=== PATIENT | female | born 1950 | race Caucasian/White ===

== ENCOUNTER 2019-02-07 15:24 | Emergency (ER) | payer MEDICARE, OTHER ==
[~2019-02-07] VITALS: Ht 152.4 cm; Wt 68.0 kg
[2019-02-07] MEDS ORDERED: CHOL50004 PO (17:00)
[2019-02-07] MEDS ORDERED: OMEP20TA5 PO (17:00)
[2019-02-07] MEDS ORDERED: METO-356 PO (17:00)
[2019-02-07] MEDS ORDERED: LEVO75TA7 PO (17:00)
[2019-02-07] MEDS ORDERED: SIMV40TA5 PO (17:00)
[2019-02-07] MEDS ORDERED: MELO-107 PO (17:00)
--- NOTE | 2019-02-07 17:13 | NUR ---
pT OUT OF ER FOR CT.
[2019-02-07] MEDS ORDERED: HYDROCODONE/APAP 5-325MG TABLET ONE (18:27)
[2019-02-07] MEDS ORDERED: HYDROCODONE/APAP 5-325MG TABLET PO ONE (18:30)
[2019-02-07 19:03] VITALS: BP 128/68
== END 2019-02-07 19:04 | disposition home or self-care (01) ==
LOC: ER 15:26
DX: S42.145A Nondisplaced fracture of glenoid cavity of scapula, left shoulder, initial encounter for closed fracture (principal); K21.9 Gastro-esophageal reflux disease without esophagitis; E03.9 Hypothyroidism, unspecified; E78.5 Hyperlipidemia, unspecified; Z79.899 Other long term (current) drug therapy; W01.0XXA Fall on same level from slipping, tripping and stumbling without subsequent striking against object, initial encounter; Y93.89 Activity, other specified; Y92.89 Other specified places as the place of occurrence of the external cause; Y99.8 Other external cause status
CPT/HCPCS: 73030; 73200; A4663

== ENCOUNTER 2025-04-07 11:12 | Inpatient (IN) | payer MEDICARE, OTHER ==
[~2025-04-07] VITALS: Ht 160 cm; Wt 65.8 kg
[~2025-04-07 11:12] MED LIST: CHOL50004 PO; LEVO75TA7 PO; MELO-107 PO; METO-356 PO; OMEP20TA5 PO; SIMV-49 PO
[2025-04-09 08:04] VITALS: BP 135/79; TEMP 98.2
[2025-04-09 08:29] VITALS: BP 135/79; TEMP 98.2
[2025-04-09] MEDS ORDERED: LEVO100T10 PO (18:05)
[2025-04-09] MEDS ORDERED: AMLO-212 PO (18:05)
[2025-04-09] MEDS ORDERED: HYDR-3980 PO (18:05)
[2025-04-09] MEDS ORDERED: ICOS1CAP PO (18:05)
[2025-04-09] MEDS ORDERED: ASPI81TA31 PO (18:05)
[2025-04-09] MEDS ORDERED: ROSU20TA2 PO (18:05)
[2025-04-09] MEDS ORDERED: ENOX40DI SQ (18:05)
[2025-04-09] MEDS ORDERED: ACET-73 PO (18:05)
[2025-04-09] MEDS ORDERED: MAGN400O6 PO (18:05)
[2025-04-09] MEDS ORDERED: POLY17PO4 PO (18:05)
[2025-04-09] MEDS ORDERED: HYDR-4209 PO (18:05)
[2025-04-09] MEDS ORDERED: CYAN10006 IM (18:08)
[2025-04-09] MEDS ORDERED: MAGNESIUM HYDROXIDE 30 ML LIQUID UDC PO PRN (19:15)
[2025-04-09 20:47] VITALS: BP 110/61; TEMP 98.6; O2SAT 92
[2025-04-10 06:23] VITALS: BP 146/85; TEMP 98.5; O2SAT 96
[2025-04-10] MEDS: LEVOTHYROXINE SODIUM 100 MCG TABLET PO SCH (06:36)
[2025-04-10] MEDS: PANTOPRAZOLE SODIUM 40 MG TABLET.DR PO SCH (06:36)
[2025-04-10 07:51] VITALS: BP 150/80; TEMP 97.6; O2SAT 96
[2025-04-10] MEDS: AMLODIPINE 5 MG TABLET PO SCH (08:48)
[2025-04-10] MEDS: ASPIRIN 81 MG TAB.CHEW PO SCH (08:48)
[2025-04-10] MEDS: ATORVASTATIN 40 MG TABLET PO SCH (08:48)
[2025-04-10] MEDS: METOPROLOL SUCCINATE XL 25 MG TAB.SR.24H PO SCH (08:48)
[2025-04-10] MEDS: MELOXICAM 7.5 MG TABLET PO SCH (08:48)
[2025-04-10] MEDS: MIRALAX 17 GM POWD.PACK PO SCH (08:48)
[2025-04-10] MEDS: HYDROCODONE/APAP 5-325MG TABLET PO PRN (08:49)
[2025-04-10] MEDS: ENOXAPARIN SODIUM 40 MG/0.4 ML DISP.SYRIN SQ SCH (08:51)
[2025-04-10] MEDS ORDERED: CYANOCOBALAMIN 1000 MCG/ML VIAL IM SCH ×2 (09:00→14:00)
[2025-04-10] MEDS: CYANOCOBALAMIN 1000 MCG/ML VIAL IM ONE (15:59)
[2025-04-10 16:19] VITALS: BP 105/63; TEMP 97.6; O2SAT 97
[2025-04-10 20:03] VITALS: BP 107/61; TEMP 97.9; O2SAT 96
[2025-04-11 05:13] VITALS: BP 125/72; TEMP 98.1; O2SAT 95
[2025-04-11 08:00] VITALS: BP 134/69; TEMP 97.7; O2SAT 95
[2025-04-11] MEDS: ICOSAPENT ETHYL 1 GM PO SCH (12:06)
[2025-04-11] MEDS: CHOLECALCIFEROL 5000 UNIT PO SCH (12:07)
[2025-04-11] MEDS: METRONIDAZOLE 500 MG TABLET PO SCH (13:52)
[2025-04-11 17:00] VITALS: BP 118/68; TEMP 98; O2SAT 95
[2025-04-11 21:18] VITALS: BP 117/63; TEMP 98.6; O2SAT 94
[2025-04-12 07:03] VITALS: BP 150/76; TEMP 98.2; O2SAT 94
[2025-04-12 08:00] VITALS: BP 142/86; TEMP 98.2; O2SAT 97
[2025-04-12 16:39] VITALS: BP 108/65; TEMP 98.5; O2SAT 99
[2025-04-12] MEDS: ACETAMINOPHEN 500 MG TABLET PO PRN (20:47)
[2025-04-12 22:29] VITALS: BP 119/70; TEMP 98; O2SAT 96
[2025-04-13 06:47] VITALS: BP 131/71; TEMP 98.7; O2SAT 95
[2025-04-13] MEDS: HYDROCODONE/APAP 10-325 MG TABLET PO PRN (06:47)
[2025-04-13 08:00] VITALS: BP 143/65; TEMP 98.1; O2SAT 95
[2025-04-13] MEDS: VANCOMYCIN HCL 125 MG CAPSULE PO SCH (14:54)
[2025-04-13 16:00] VITALS: BP 124/71; TEMP 98; O2SAT 95
[2025-04-13 20:35] VITALS: BP 117/66; TEMP 98.3; O2SAT 96
[2025-04-14 06:37] VITALS: BP 143/66; TEMP 98.4; O2SAT 96
[2025-04-14 07:39] VITALS: BP 149/75; TEMP 97.6; O2SAT 97
[2025-04-14 16:00] VITALS: BP 106/60; TEMP 97.6; O2SAT 97
[2025-04-14 21:54] VITALS: BP 115/61; TEMP 98; O2SAT 95
[2025-04-15 06:56] VITALS: BP 139/69; TEMP 98.1; O2SAT 97
[2025-04-15 08:40] VITALS: BP 143/87; TEMP 98.1; O2SAT 96
[2025-04-15 16:08] VITALS: BP 116/57; TEMP 97.9; O2SAT 93
[2025-04-15 19:55] VITALS: BP 128/72; TEMP 97.7; O2SAT 96
[2025-04-16 08:03] VITALS: BP 134/68; TEMP 97.6; O2SAT 98
[2025-04-16 15:56] VITALS: BP 134/68; TEMP 97.4; O2SAT 98
[2025-04-16 20:02] VITALS: BP 123/72; TEMP 97.4; O2SAT 95
[2025-04-17 06:00] VITALS: BP 125/71; TEMP 97.9; O2SAT 97
[2025-04-17 07:55] VITALS: BP 141/76; TEMP 98.1; O2SAT 96
[2025-04-17 16:32] VITALS: BP 118/57; TEMP 98.4; O2SAT 99
[2025-04-17 19:30] VITALS: BP 112/65; TEMP 98.3; O2SAT 97
[2025-04-18 07:52] VITALS: BP 132/88; TEMP 97.9; O2SAT 95
[2025-04-18 15:30] VITALS: BP 105/56; TEMP 98.2; O2SAT 98
[2025-04-18 19:31] VITALS: BP 114/61; TEMP 98.4; O2SAT 98
[2025-04-19 08:30] VITALS: BP 115/78; TEMP 97.9; O2SAT 98
[2025-04-19 19:02] VITALS: BP 107/67; TEMP 97.5; O2SAT 95
[2025-04-19 19:45] VITALS: BP 120/69; TEMP 97.5; O2SAT 95
[2025-04-20 06:11] VITALS: BP 119/71; TEMP 98.6; O2SAT 95
[2025-04-20 08:05] VITALS: BP 117/70; TEMP 98; O2SAT 96
[2025-04-21 00:13] VITALS: BP 106/56; TEMP 97.5; O2SAT 95
[2025-04-21 06:17] VITALS: BP 154/69; TEMP 98.2; O2SAT 97
[2025-04-21 08:00] VITALS: BP 129/78; TEMP 97.8; O2SAT 97
[2025-04-21 15:54] VITALS: BP 120/63; TEMP 97.8; O2SAT 97
[2025-04-21 20:00] VITALS: BP 133/74; TEMP 97.9; O2SAT 98
[2025-04-22 06:00] VITALS: BP 141/72; TEMP 98.1; O2SAT 99
[2025-04-22 08:00] VITALS: BP 122/68; TEMP 98.3; O2SAT 95
[2025-04-22 16:00] VITALS: BP 106/56; TEMP 98.2; O2SAT 96
[2025-04-22 20:00] VITALS: BP 121/66; TEMP 98.3; O2SAT 94
[2025-04-23 05:00] VITALS: BP 126/74; TEMP 98.4; O2SAT 94
[2025-04-23 08:00] VITALS: BP 154/79; TEMP 98.3; O2SAT 98
[2025-04-23 16:14] VITALS: BP 109/76; TEMP 97.5; O2SAT 98
[2025-04-24] MEDS ORDERED: CYANOCOBALAMIN 1000 MCG/ML VIAL IM SCH (09:00)
== END 2025-04-23 18:00 | disposition home health service (06) | DRG 560 ==
PROVIDERS: ADMIT Physical Medicine & Rehabilitation Pain Medicine; ATTEND Physical Medicine & Rehabilitation Pain Medicine
DX: S72.141D Displaced intertrochanteric fracture of right femur, subsequent encounter for closed fracture with routine healing (principal); A04.72 Enterocolitis due to Clostridium difficile, not specified as recurrent; W18.30XD Fall on same level, unspecified, subsequent encounter; M19.90 Unspecified osteoarthritis, unspecified site; E89.0 Postprocedural hypothyroidism; I10 Essential (primary) hypertension; E78.5 Hyperlipidemia, unspecified; E53.8 Deficiency of other specified B group vitamins
CPT/HCPCS: 73502; 74018; 97535-GO-CO; A9150; J1650; J3420